=== PATIENT | male | born 1995 | race African-American/Black ===

== ENCOUNTER 2017-06-09 20:24 | Emergency (ER) | payer MEDICAID ==
[~2017-06-09] VITALS: Ht 180.3 cm; Wt 68.0 kg
[2017-06-09 22:26] VITALS: BP 119/63
== END 2017-06-09 22:37 | disposition home or self-care (01) ==
LOC: ER 20:35
DX: B35.3 Tinea pedis (principal)

== ENCOUNTER 2017-11-06 21:46 | Emergency (ER) | payer MEDICAID ==
[~2017-11-06] VITALS: Ht 182.9 cm; Wt 61.2 kg
[2017-11-06 22:03] VITALS: BP 134/95
[2017-11-06 22:36] LABS: Basophils # (auto) 0.1 uL; Eosinophils # (auto) 0.2 uL; Eosinophils % (auto) 3.1 % (0.0-7.0); Hematocrit 43.5 % (41.0-53.0); Lymphocytes # (auto) 2.4 uL; Lymphocytes % (auto) 42.6 % (10.0-50.0); Mean Corpuscular Hemoglobin 28.8 pg (28.0-32.0); Mean Corpuscular Hgb Conc. 34.4 g/dL (32.0-36.0); Mean Corpuscular Volume 83.7 fL (80.0-100.0); Monocytes # (auto) 0.5 uL; Monocytes % (auto) 8.1 % (0.0-12.0); Neutrophils # (auto) 2.5 uL; Neutrophils % (auto) 45.2 % (37.0-80.0); Nucleated Red Blood Cells % 0.7 %; Platelet Count (auto) 273 10^3/uL (140-450); Red Blood Cells 5.19 10^6/uL (4.5-5.90); Red Cell Distribution Width 13.2 % (11.8-14.3); White Blood Cell 5.6 10^3/uL (4.4-10.8)
[2017-11-06 23:00] LABS: BUN/Creatinine Ratio 15.2; Bilirubin, Total 0.7 mg/dL (0.2-1.0); Calcium 8.4 mg/dL (8.5-10.1); Magnesium 2.4 mg/dL (1.6-2.6); Potassium 4.1 mmol/L (3.5-5.1); Total Protein 7.6 g/dL (6.4-8.2)
== END 2017-11-07 00:56 | disposition left against medical advice (07) ==
LOC: ER 21:46
DX: R07.89 Other chest pain (principal); R79.89 Other specified abnormal findings of blood chemistry
CPT/HCPCS: 36415; 71045; 80053; 83735; 84484; 85025; 93005

== ENCOUNTER 2018-06-07 20:57 | Emergency (ER) | payer MEDICAID ==
[~2018-06-07] VITALS: Ht 182.9 cm; Wt 79.4 kg
[2018-06-07 22:20] VITALS: BP 152/72
[2018-06-07] MEDS ORDERED: LACTULOSE 20Gm/30ML SOLN PO ONE (23:00)
== END 2018-06-07 23:43 | disposition home or self-care (01) ==
LOC: EDBD 20:57 → ER 21:07
DX: K59.00 Constipation, unspecified (principal)
CPT/HCPCS: 74018